=== PATIENT | female | born 1990 | race Caucasian/White ===

== ENCOUNTER 2019-01-03 19:00 | Emergency (ER) | payer OTHER, SELFPAY ==
[2019-01-03 19:02] VITALS: BP 132/102; PULSE 110; RESP 18; TEMP 36.8; O2SAT 100; BMI 25.9
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
--- NOTE | 2019-01-03 19:57 | RAD_ITS ---
STUDY: X-RAY - UNILATERAL RIBS ( RIGHT ) WITH CHEST REASON FOR EXAM: Female, 28 years old. Pain in right ribs TECHNIQUE - RIBS: 3 view(s) of the ribs. TECHNIQUE - CHEST: PA COMPARISON: None. FINDINGS - RIBS: There is an obliquely oriented nondisplaced fracture of the anterior axillary aspect of the right 10th rib FINDINGS - CHEST: The lungs are clear and expanded. There is no demonstrated pleural abnormality. Normal size heart. Normal mediastinum and carlitos. Normal visualized pulmonary arteries. Normal visualized aortic arch and descending thoracic aorta. Normal visualized thoracic spine. Normal visualized clavicles, and shoulders. There is no demonstrated abnormality of the visualized soft tissue structures of the upper abdomen. RAD/Ribs Uni Min 3V w/PA Chest IMPRESSION: RIBS: Nondisplaced fracture of the right 10th rib. CHEST: Normal x-ray examination of the chest. Electronically Signed: Skyler Ambrosio MD at 20:54 EST , Service support ,
[2019-01-03] MEDS: HYDROcodone Bitartrate/Apap 5/325 Tablet PO (21:33)
[2019-01-03 21:37] VITALS: RESP 16
== END 2019-01-03 21:37 | disposition home or self-care (01) ==
PROVIDERS: Emergency Provider Emergency Medicine
DX: S22.31XA Fracture of one rib, right side, initial encounter for closed fracture (principal); V47.0XXA Car driver injured in collision with fixed or stationary object in nontraffic accident, initial encounter; Y93.I9 Activity, other involving external motion; Y92.410 Unspecified street and highway as the place of occurrence of the external cause; Y99.8 Other external cause status
CPT/HCPCS: 71101; 99284